=== PATIENT | male | born 1990 ===

== ENCOUNTER 2017-04-03 20:51 | Emergency (ER) | payer SELFPAY ==
--- NOTE | 2017-04-03 21:35 | C.PDOC ---
History Of Present Illness 27 y/o male presents to ED who states he works in a [employer], went to lift a 200 lb box this morning, and felt a sudden pain in his left chest wall. Patient reports he has had pain since then, worsening with movement and palpation to the area. Denies shortness of breath or lightheadedness. Denies any past medical history. Time Seen by Provider: 04/03/17 21:23 Chief Complaint (Nursing): Chest Pain History Per: Patient History/Exam Limitations: no limitations Onset/Duration Of Symptoms: Hrs, Persistent Current Symptoms Are (Timing): Still Present Quality: "Pain" Associated Symptoms: denies: Nausea, Dyspnea, Diaphoresis Exacerbating Factors: Movement Recent travel outside of the [place]: No Past Medical History Reviewed: Historical Data, Nursing Documentation, Vital Signs Vital Signs: Last Vital Signs Temp 98.2 F 04/03/17 20:55 Pulse 86 04/03/17 20:55 Resp 18 04/03/17 20:55 BP 139/81 04/03/17 20:55 Pulse Ox 100 04/03/17 21:35 - Medical History PMH: No Chronic Diseases Family History: States: No Known Family Hx - Social History Hx Alcohol Use: Yes Hx Substance Use: No Review Of Systems Except As Marked, All Systems Reviewed And Found Negative. Constitutional: Negative for: Fever, Chills Cardiovascular: Negative for: Chest Pain, Palpitations Respiratory: Negative for: Cough, Shortness of Breath Gastrointestinal: Negative for: Nausea, Vomiting, Abdominal Pain Musculoskeletal: Positive for: Other (left chest wall/pectoralis pain). Negative for: Neck Pain, Back Pain Physical Exam - Physical Exam Appears: Non-toxic, No Acute Distress Skin: Normal Color, Warm, Dry Head: Atraumatic, Normacephalic Oral Mucosa: Moist Neck: Normal ROM, No Midline Cervical Tenderness, No Paracervical Tenderness, Supple Chest: Symmetrical, No Deformity, Tenderness (tender over left pectoralis, no point tenderness to ribs), No Ecchymosis Cardiovascular: Rhythm Regular, No Murmur Respiratory: Normal Breath Sounds, No Rales, No Rhonchi, No Wheezing Gastrointestinal/Abdominal: Soft, No Tenderness, No Distention, No Guarding, No Rebound Back: Normal Inspection Extremity: Normal ROM, No Tenderness, Capillary Refill (< 2 sec. ) Extremity: Bilateral: Normal Color And Temperature Neurological/Psych: Oriented x3, Normal Speech, Normal Cognition, Normal Motor, Normal Sensation ED Course And Treatment ECG: Interpreted By Me ECG Interpretation: Normal O2 Sat by Pulse Oximetry: 100 (RA) Pulse Ox Interpretation: Normal Progress Note: Treated with Flexeril and Toradol. Reevaluation Time: 22:06 Reassessment Condition: Improved Disposition Counseled Patient/Family Regarding: Studies Performed, Diagnosis, Need For Followup, Rx Given - Disposition Referrals: [facility] [Outside] Disposition: HOME/ ROUTINE Disposition Time: 22:07 Condition: IMPROVED Prescriptions: Cyclobenzaprine [Cyclobenzaprine HCl] 10 mg PO TID PRN #14 tab PRN Reason: Muscle Spasm Naproxen [Naprosyn] 1 tab PO BID PRN #25 tab PRN Reason: Pain Instructions: Muscle Strain (ED) Print Language: UZBEK - Clinical Impression Clinical Impression: Muscle strain of anterior chest wall - Scribe Statement The provider has reviewed the documentation as recorded by the Kassandra Hicks Provider Attestation: All medical record entries made by the Kassandra were at my direction and personally dictated by me. I have reviewed the chart and agree that the record accurately reflects my personal performance of the history, physical exam, medical decision making, and the department course for this patient. I have also personally directed, reviewed, and agree with the discharge instructions and disposition.
[2017-04-03 22:22] VITALS: BP 131/83; PULSE 78; RESP 22; TEMP 98.7; O2SAT 99
--- NOTE | 2017-04-05 06:56 | CARD ---
APPROVED REPORT EKG Measurement Heart [id number] <Conclusion> Normal sinus rhythm Normal ECG
== END 2017-04-03 22:23 | disposition home or self-care (01) ==
LOC: C.ER 20:51
DX: S29.011A Strain of muscle and tendon of front wall of thorax, initial encounter (principal); X50.0XXA Overexertion from strenuous movement or load, initial encounter; Y93.89 Activity, other specified; Y92.512 Supermarket, store or market as the place of occurrence of the external cause; Y99.0 Civilian activity done for income or pay
CPT/HCPCS: 96372; 99284; J1885

== ENCOUNTER 2017-12-30 13:22 | Emergency (ER) | payer OTHER ==
[2017-12-30 13:40] VITALS: BP 117/71; PULSE 81; RESP 18; TEMP 98.8; O2SAT 98
[2017-12-30] MEDS ORDERED: Naproxen 550 mg Tab PO STA (13:55)
--- NOTE | 2017-12-30 13:55 | C.PDOC ---
History Of Present Illness 27 y/o male presents to ED with complaitns of intermittent left shoulder pain for 1 year after lifting heavy object. Patient states pain has worsen for "several days" which prompted visit to ED. Patient reports not seeing ortho in the time period of symptoms and denies new injuries, numbness or any other complaints at this time. Time Seen by Provider: 12/30/17 13:41 Chief Complaint (Nursing): Upper Extremity Problem/Injury History Per: Patient History/Exam Limitations: no limitations Onset/Duration Of Symptoms: Days Current Symptoms Are (Timing): Still Present Quality: "Pain" Past Medical History Reviewed: Historical Data, Nursing Documentation, Vital Signs Vital Signs: Last Vital Signs Temp 98.8 F 12/30/17 13:37 Pulse 81 12/30/17 13:37 Resp 18 12/30/17 13:37 BP 117/71 12/30/17 13:37 Pulse Ox 98 12/30/17 14:41 - Medical History PMH: No Chronic Diseases Surgical History: No Surg Hx Family History: States: No Known Family Hx - Social History Hx Alcohol Use: Yes Hx Substance Use: No - Immunization History Hx Tetanus Toxoid Vaccination: No Hx Influenza Vaccination: No Hx Pneumococcal Vaccination: No Review Of Systems Except As Marked, All Systems Reviewed And Found Negative. Musculoskeletal: Positive for: Shoulder Pain Physical Exam - Physical Exam Appears: Non-toxic, No Acute Distress, Other (Comfortable) Skin: Normal Color, Warm, Dry, No Rash Head: Atraumatic, Normacephalic Oral Mucosa: Moist Neck: Normal ROM, Supple Chest: Tenderness (Above clavicle area on left side) Cardiovascular: Rhythm Regular Respiratory: Normal Breath Sounds, No Rales, No Rhonchi, No Wheezing Extremity: Tenderness (to palpation on left scapular), Capillary Refill (<2 seconds), No Deformity, No Swelling Extremity: Bilateral: Normal ROM Neurological/Psych: Oriented x3, Normal Speech, Normal Motor, Normal Sensation ED Course And Treatment O2 Sat by Pulse Oximetry: 98 (RA) Pulse Ox Interpretation: Normal Progress Note: left Shoulder xray. Naproxen administered Disposition Counseled Patient/Family Regarding: Diagnosis, Need For Followup, Rx Given - Disposition Referrals: Kenney Elizondo III, MD [Staff Provider] - [facility] [place] [Outside] [facility] [Outside] Disposition: HOME/ ROUTINE Disposition Time: 14:30 Condition: STABLE Additional Instructions: YOU NEED TO FOLLOW UP WITH ORTHOPEDICS WITHIN 1 WEEK USE MEDICATION FOR PAIN NEEDED RETURN TO EMERGENCY ROOM IF SYMPTOMS WORSEN NECESITA SEGUIR CON ORTOPEDIA DENTRO DE 1 SEMANA USE MEDICAMENTO PARA EL DOLOR SEGN SEA NECESARIO REGRESE AL MARISOL DE EMERGENCIA SI LOS SNTOMAS EMPEORAN Prescriptions: Cyclobenzaprine [Flexeril] 10 mg PO BID PRN #15 tab PRN Reason: Muscle Spasm Naproxen 375 mg PO BID PRN #20 tablet PRN Reason: pain Instructions: Shoulder Sprain Forms: [employer] (Maori) Print Language: ALGERIAN - Clinical Impression Clinical Impression: Chronic left shoulder pain - Scribe Statement The provider has reviewed the documentation as recorded by the Scribchris Palacios All medical record entries made by the Scribe were at my direction and personally dictated by me. I have reviewed the chart and agree that the record accurately reflects my personal performance of the history, physical exam, medical decision making, and the department course for this patient. I have also personally directed, reviewed, and agree with the discharge instructions and disposition.
[2017-12-30] MEDS ORDERED: Naproxen 550 mg Tab PO ONE (14:00)
--- NOTE | 2017-12-30 14:39 | RAD ---
PROCEDURE: Radiographs of the Left Shoulder HISTORY: LEFT SHOULDER PAIN COMPARISON: No prior. FINDINGS: BONES: Normal. No fracture. JOINTS: Normal. Glenohumeral and acromioclavicular joints preserved. No osteoarthritis. SOFT TISSUES: Normal. OTHER FINDINGS: None. IMPRESSION: Normal radiographs of the left shoulder.
== END 2017-12-30 14:36 | disposition home or self-care (01) ==
LOC: C.ER 13:22
DX: M25.512 Pain in left shoulder (principal); G89.29 Other chronic pain